=== PATIENT | male | born 1935 | race Caucasian/White ===

== ENCOUNTER 2024-05-02 11:11 | Outpatient (RCR) | payer OTHER, SELFPAY | END 2024-05-02 23:59 | disposition home or self-care (01) | LOC: RPT 11:11 | PROVIDERS: ATTENDING PHYSICIAN Orthopaedic Surgery Hand Surgery; FAMILY PHYSICIAN Internal Medicine | DX: M25.512 Pain in left shoulder (principal); Z73.6 Limitation of activities due to disability; M62.81 Muscle weakness (generalized); G89.29 Other chronic pain; W18.39XD Other fall on same level, subsequent encounter | CPT/HCPCS: 97010; 97110; 97162 ==

== ENCOUNTER → 2024-06-04 13:02 | Outpatient (REF) | payer OTHER, SELFPAY | LOC: HWRAD 13:02 | PROVIDERS: ATTENDING PHYSICIAN Internal Medicine | DX: R51.9 Headache, unspecified (principal) | CPT/HCPCS: 70450 ==

== ENCOUNTER → 2024-06-17 11:04 | Outpatient (REF) | payer OTHER, SELFPAY | LOC: HWRAD 11:04 | PROVIDERS: ATTENDING PHYSICIAN Internal Medicine | DX: R07.81 Pleurodynia (principal) | CPT/HCPCS: 71101 ==

== ENCOUNTER 2024-12-08 07:45 | Inpatient (IN) | payer OTHER, SELFPAY ==
[2024-12-03 09:49] VITALS: BP 116/79
[2024-12-03 10:23] VITALS: BP 99/66
[2024-12-03 10:39] VITALS: BMI 26.3
[2024-12-03 10:43] LABS: Hematocrit 37.3 % (39.0-52.0); Hemoglobin 12.6 g/dL (13.0-18.0); Mean Corp Hgb Conc. 33.8 g/dL (33.0-37.0); Mean Corpuscular Volume 88.4 fL (80.0-94.0); Nucleated Red Blood Cells % 0 % (-); Platelet Count 235 10^3/uL (130-400); Red Cell Dist. Width 15.3 % (11.5-14.5)
[2024-12-03 10:55] LABS: ALT (SGPT) 17 U/L (0-50); AST (SGOT) 19 U/L (17-59); Albumin 3.9 g/dl (3.5-5.0); Alkaline Phosphatase 56 U/L (38-126); Blood Urea Nitrogen 18 mg/dl (9-20); Calcium 9.4 mg/dl (8.4-10.2); Carbon Dioxide 25 mmol/L (22-30); Chloride 106 mmol/L (98-107); Estimated Creatinine Clearance 60 ml/min; Glucose 114 mg/dl (70-99); Lipase 65 U/L (23-300); Potassium 4.0 mmol/L (3.5-5.1); Sodium 136 mmol/L (135-145); Total Protein 6.2 g/dl (6.3-8.2); eGFR > 60.00
[2024-12-03] MEDS: NSS 1000 IV (12:04)
--- NOTE | 2024-12-03 12:36 | ED.GENMED ---
History of Present Illness
General
Chief Complaint: Abdominal Pain
Source: patient
Exam Limitations: none
Time Seen by Provider: 12/03/24 10:21
Nursing documentation reviewed up to this point in time: agreed with
History of Present Illness
History of Present Illness:
see MDM
Past History
Past History
ED Past Medical History: GERD, Hypercholesterolemia, Hypothyroidism and Other (Asp PNA, R rotator cuff problems)
ED Past Surgical History: Appendectomy
Social History
Tobacco: Former smoker
Alcohol: None
Drug: None
Personal:
Living: with family
Family History
Family History: Cancer (Colon cancer) and Other (Mother had Alzheimer's)
Review of Systems
Review of Systems
Allergies reviewed?: Yes
All Other Systems: Not applicable
Phy Exam
Physical Exam
Physical Exam:
GENERAL: Alert , in no apparent distress
EYE: pupils equal and reactive
NECK: Supple
ENT: o/p clr, mmm.
CARDIAC: Regular rate and rhythm .
LUNGS: Clear breath sounds bilaterally, no acute respiratory distress, no wheezes/rales/rhonchi
ABDOMEN: Soft,mild epigastric tendneress; no r/g, no cvat, normal bowel sounds
NEUROLOGICAL: Alert and oriented, no focal neuro deficits
SKIN: Warm and dry, skin intact.
MUSCULOSKELETAL: No edema, well perfused. neg calin's sign
PSYCH: Normal and appropriate interaction.
Course
Orders/Labs/Results
Orders:
Orders
12/03/24 Lunch
Regular
At Your Request: Full Participation
12/03/24 10:34
CMP [Comprehensive Metabolic Panel] Urgent
Complete Blood Count/With Diff Urgent
Lipase Urgent
Comment: ADD ON
12/03/24 10:37
Add On- LAB Urgent
Tests Added?: lipase
12/03/24 10:59
Electrocardiogram (*1) Urgent
Reason for Study: Abdominal Pain
EKG- Treatment ONCE
0.9% Sodium Chloride 1000 ml [Nss] 1,000 ml IV BOLUS
US Abdomen Complete/Upper Urgent
Comment:
Reason For Exam: upper abd pain, vomitnig
12/03/24 12:05
Troponin I Urgent
12/03/24 12:55
Ampicillin/Sulbactam 3 G [Unasyn] 3 gm 0.9% Sodium Chloride 100 ml [Nss] 100 ml IV NOW
12/03/24 14:25
Admit Patient As Directed
Co-Sign Provider:
Level of Care: Observation services
Assign to:: Medical/Surgical
Physician / Group: Isaak
Diagnosis: Biliary colic
Code Status As Directed
Resuscitation Status: Full Code
Acetaminophen [Tylenol] 650 mg PO Q4HPRN PRN
HYDROmorphone [Dilaudid] 0.5 mg IV Q3HPRN PRN
HYDROmorphone [Dilaudid] 1 mg IV Q3HPRN PRN
Ondansetron Injectable [Zofran] 4 mg IV Q6HPRN PRN
Activity As Directed
Activity Level: Out of Bed-Early Mobility
Anti-embolism (GABINO) Hose As Directed
Type: Thigh high
Intake/ Output As Directed
Frequency: Per unit guidelines
Vital Signs As Directed
Frequency: Per unit guidelines
PRN Pain Medication Management As Directed
May give lesser potent ordered pain med per pt: Yes
preference::
Protocol:: Medication orders for pain may be administered in a
manner that supports deferring to patient preference
when the pt is:
- Requesting an ordered lesser potent pain medication.
Least to most potent pain medications are defined
as: acetaminophen < NSAID < tramadol < opioids
(morphine, oxycodone, hydromorphone).
- Requesting a lesser dose of the same medication IF
ORDERED.
- Requesting a less intrusive route of administration
if both routes are prescribed by the provider (PO <
IV).
12/03/24 14:26
Pneumatic Compression Sleeves As Directed
Type: Knee high
DX Deep Vein Thrombosis Video Routine
12/03/24 14:29
Consult Cardiology [CARDIOLOGY CONSULT] Routine
Consulting Provider: Van Znuiga
Was physician already notified: Yes
Reason for consult: cards risk stratfication for lap norbert
12/03/24 14:30
Normosol (Mult Electrolytes) [Normosol-R/Plasmalyte-A] 1,000 ml IV 75 mls/hr
12/03/24 15:00
Pantoprazole [Protonix IV] 40 mg IV DAILY
12/03/24 18:00
Enoxaparin Sodium [Lovenox] 40 mg SC QPM
12/04/24 Breakfast
NPO
Allow oral meds: No
Allow clear liquids: No
Basic Metabolic Panel IN AM
Complete Blood Count/No Diff IN AM
LFT [Wdfcw-Snld-Ravkaww] IN AM
Levothyroxine [Synthroid] 100 mcg PO DAILY@0600
12/04/24 08:00
Finasteride [Proscar] 5 mg PO DAILY
Abnormal Lab Results
12/03/24
10:34
WBC 13.1 H 10^3/uL
(4.8-10.8)
RBC 4.22 L 10^6/uL
(4.70-6.10)
Hgb 12.6 L g/dL
(13.0-18.0)
Hct 37.3 L %
(39.0-52.0)
RDW 15.3 H %
(11.5-14.5)
Abs Immat Gran (auto) 0.1 H 10^3/uL
(0-0.05)
Absolute Neuts (auto) 11.6 H 10^3/uL
(1.4-6.5)
Absolute Lymphs (auto) 0.8 L 10^3/uL
(1.2-3.4)
Absolute Monos (auto) 0.7 H 10^3/uL
(0.1-0.6)
Neutrophils % 88.3 H %
(42.2-75.2)
Lymphocytes % 5.9 L %
(20.5-51.1)
Glucose 114 H mg/dl
(70-99)
Total Protein 6.2 L g/dl
(6.3-8.2)
12/03/24 10:34
12/03/24 10:34
Vital Signs
Initial and Last Documented VS:
Initial Vital Signs
Pulse Resp BP Pulse Ox
89 18 116/79 98
12/03/24 09:49 12/03/24 09:49 12/03/24 09:49 12/03/24 09:49
Last Documented Vital Signs
Temp Pulse Resp BP Pulse Ox
36.4 C 74 20 105/63 98
12/03/24 09:51 12/03/24 13:15 12/03/24 13:15 12/03/24 13:01 12/03/24 12:38
MDM/Problems Addressed
Differential Diagnosis Includes:
see MDM
MDM/Problems Addressed:
Note:
CHIEF COMPLAINT(S)
Abdominal pain, nausea, and vomiting.
HISTORY OF PRESENT ILLNESS
The patient is an 89-year-old male presenting with abdominal pain, nausea, and vomiting. The onset of symptoms was noted after sitting on a stool while providing care for his spouse. He experienced significant indigestion and attempted to relieve it
by belching without success. The patient subsequently developed abdominal pain, described initial severity as 7/10 and later decreased to 3-4/10. He also noted nausea and vomiting, which occurred thrice, with the last episode prior to 3 a.m.
Alongside these symptoms, he reported restless legs syndrome becoming symptomatic throughout his entire body. The patient self-administered acetaminophen at 3 a.m., which temporarily alleviated his abdominal pain. Attempts to hydrate with warm water
were successful, and he forced a difficult bowel movement that provided no relief. He takes medications intermittently for GERD, including a proton pump inhibitor. The patient has no prior history of stomach ulcers or known gallbladder disease. He
reports low blood pressure historically but is not on medications like midodrine.
PAST MEDICAL AND SURGICAL HISTORY
- History of low blood pressure
- Appendectomy performed approximately 20 years ago
- Previous bout of varicella-zoster virus infection (shingles)
CHRONIC MEDICAL CONDITIONS SIGNIFICANTLY AFFECTING CARE
- Gastroesophageal reflux disease (GERD)
- Restless legs syndrome
PHYSICAL EXAM
- Abdominal examination reveals no significant tenderness
Nursing notes reviewed and vital signs reviewed.
PLAN
- Order laboratory tests to evaluate liver, gall bladder, pancreas, and other potential sources of abdominal pain.
- Monitor patient�s symptoms and provide supportive care, keeping patient hydrated.
- Consider potential viral gastroenteritis as a differential to observe clinical progression.
DIFFERENTIAL DIAGNOSIS
The Differential Diagnosis includes, in no particular order and is not limited to:
1. Gastroesophageal reflux disease exacerbation
2. Gallbladder disease (cholecystitis or choledocholithiasis)
3. Peptic ulcer disease
4. Gastroenteritis (viral)
5. Pancreatitis
6. Gastritis
7. Small bowel obstruction
8. Intestinal ischemia
9. Hiatal hernia
10. Cardiovascular events (e.g., myocardial infarction presenting as abdominal pain)
room [address] is estephania ray pretty healthy 89 y/o M HLD, chronically low bp (90s/60s baseline)
upper abd pain last night, vomit x 3, still has mild pain;
afebrile, wbc 13, lfts,/lipase normal, mild epigastric tenderness; US shows cholelithiasis with distension and mild thickening and edema; no ductal dilation
I messaged Dr. Mulligan from general surgery
He did come see the patient and did recommend that the patient stay, will start with IV antibiotics and probably try a p.o. challenge because the patient did not seem overly tender and may just be biliary colic. He will defer decision for surgery
till tomorrow
*Pulse Oximetry
SaO2: 98
Oxygen Mode of Delivery: Room air
Patient hypoxic: no (98)
*Critical Care Note
Total Time (30-74mins, 75-104mins- exclusive of procedures): Not Applicable
ED Attending Note
-
Portions of this chart may have been created with voice recognition software.� Occasional wrong word or��sound alike� substitutions may have occurred due to the inherent limitations of voice recognition software.
Discharge Plan
Departure
Patient Disposition: Admit
Date of Disposition: 12/03/24
Time of Disposition: 14:18
Admit to: Med/Surg
Admit to doctor: isaak
Presentation/result/management discussed w/ accepting MD/DO: isaak
Condition: Fair
Covid-19: Not Applicable
Discharge Problem:
Cholelithiasis
Interventions
Interventions:
*Risk Screen - Suicide Last Done: 12/03/24 09:48
*General Assessment Last Done: 12/03/24 09:48
*Neglect/Abuse Screening Last Done: 12/03/24 09:48
*ED- Fall Risk Assessment Last Done: 12/03/24 10:39
*ED COVID-19 Vaccine History Last Done: 12/03/24 10:39
ND-Adchro-Pdsttzefju Assessment Last Done: 12/03/24 10:38
[2024-12-03 12:51] LABS: Troponin I < 0.012 ng/ml
[2024-12-03 13:01] VITALS: BP 105/63
[2024-12-03] MEDS: UNASYN IV (13:27)
--- NOTE | 2024-12-03 14:30 | CON.GS ---
Consultation
-
Date/Time Consultation Performed: 12/03/24
Requesting Provider: Pippa
Performing Provider: Isaak
Reason for Consultation: Biliary colic
Medical History
-
Chief Complaint: Abd pain
History of Present Illness:
89M with acute onset RUQ abd pain that began around midnight last night, a/w belching that progressed to n/v. Vomiting did not provide relief. Denies changes to stool/urine, denies radiation of pain. Ate fried chicken tenders for dinner last night.
Presently reports feeling well, denies pain.
Past Medical History
Past Medical History: Other (GERD, Hypercholesterolemia, Hypothyroidism and Other (Asp PNA, R rotator cuff problems))
Past Surgical History: Other (Appendectomy)
Social History
Tobacco: Former Smoker
Alcohol: None
Drug: None
Personal:
Living: With Family
Family History
Family History: Reviewed & Noncontributory
Allergies / Home Medications
Allergy/AdvReac Type Severity Reaction Status Date / Time
No Known Allergies Allergy Verified 12/03/24 09:45
�Medication �Instructions �Recorded �Confirmed �Type
acetaminophen 325 mg tablet 650 mg PO Q6HPRN PRN mild pain 12/03/24 12/03/24 History
(Tylenol)
calcium carbonate (Tums) 200 mg PO BIDPRN PRN gerd 12/03/24 12/03/24 History
cholecalciferol (vitamin D3) 25 25 mcg PO DAILY 12/03/24 12/03/24 History
mcg (1,000 unit) tablet (Vitamin
D3)
ferrous sulfate 325 mg (65 mg 325 mg PO DAILY 12/03/24 12/03/24 History
iron) tablet
finasteride 5 mg tablet 5 mg PO DAILY 12/03/24 12/03/24 History
levothyroxine 100 mcg tablet 100 mcg PO DAILY 12/03/24 12/03/24 History
(Synthroid)
pantoprazole 40 mg tablet,delayed 40 mg PO DAILYPRN PRN gerd 12/03/24 12/03/24 History
release (Protonix)
therapeutic multivitamin 1 tab PO DAILY 12/03/24 12/03/24 History
vitamin E 268 mg (400 unit) capsule 268 mg PO DAILY 12/03/24 12/03/24 History
Review of Systems
-
A 10 point review of systems was completed, and was negative except as per HPI.
Physical Exam
Vital Signs
Temp Pulse Resp BP Pulse Ox
97.6 F 74 20 105/63 98
12/03/24 09:51 12/03/24 13:15 12/03/24 13:15 12/03/24 13:01 12/03/24 12:38
12/02/24 12/03/24 12/04/24
06:59 06:59 06:59
Actual Weight 83.2 kg
Body Mass Index (BMI) 26.3
Lab Results
12/03/24 10:34
12/03/24 10:34
WBC 13.1 10^3/uL (4.8-10.8) H 12/03/24 10:34
Hgb 12.6 g/dL (13.0-18.0) L 12/03/24 10:34
Hct 37.3 % (39.0-52.0) L 12/03/24 10:34
Plt Count 235 10^3/uL (130-400) 12/03/24 10:34
Abs Immat Gran (auto) 0.1 10^3/uL (0-0.05) H 12/03/24 10:34
Neutrophils % 88.3 % (42.2-75.2) H 12/03/24 10:34
Physical Exam
General: Well Developed, Well Nourished and No Apparent Distress
HEENT: Normocephalic and Anicteric
GI: Soft, Non Tender and Non Distended
Skin: Warm and Dry
Neuro: AO x 3
Psych: Calm
Data Reviewed
-
Ultrasound: Image Personally Visualized and interpreted, Report Reviewed by me, Discussed with Physician, Discussed with Patient and Discussed with Family
Labs: Labs Reviewed by me, Discussed with Physician, Discussed with Patient and Discussed with Family
Assessment / Plan
-
89M with biliary colic vs subacute calculous cholecystitis
AFVSS, BP chronically low
no ttp to RUQ nor epigastrium on exam
WBC 13.1K, LFTs WNL
US with stones, 6.5mm GBWT, trace PCF, CBD WNL, negative sono thomas's
Plan:
Admit for obs
PO challenge, NPO @ MN to preserve option of surgery tomorrow
If he eats without issues and WBC improves tomorrow, option of deferring surgery is reasonable
If PO doesn't go well or WBC increases tomorrow would recommend proceeding to OR for CCY
Cards consult for risk stratification
Defer abx for now unless fever develops
Trend labs
DVT ppx
PPI IV
Home thyroid meds and finasteride to continue
Ambulate
D/w patient and family, all in agreement
--- NOTE | 2024-12-03 14:35 | CON.CAR ---
Addendum entered and electronically signed by Van Zuniga DO 12/03/24 21:23:
I saw and examined the patient.
[employer] Author's note was reviewed and I agree with note.
Plan:
HPI: Patient came to the ER today with ongoing nausea and abdominal pain and is being admitted with possible biliary colic versus subacute calculous cholecystitis and cardiology is consulted for possible surgical intervention and the need for
preoperative cardiovascular risk stratification. Patient said symptoms primarily started yesterday and then were progressively worse leading to his arrival in the ER. In the ER there was upper abdominal pain and midepigastric tenderness prompting
abdominal ultrasound that showed cholelithiasis with distention and mild thickening and edema, but no ductal dilatation. The patient was seen by general surgery who suspects biliary colic versus subacute calculous cholecystitis and is considering
cholecystectomy. Patient reports that he is independent with all the activity in his two-story home, he is up and down the stairs on a daily basis without any chest pain or shortness of breath. He quit smoking over 40 years ago. He was seen by
Dr. Redman as an ER consult back in 2010 for chest pain and at that time he completed an exercise nuclear stress test completing 6-1/2 minutes of Prasanna protocol and on nuclear imaging the EF was preserved at 68% with small fixed inferior apical
defect and overall he is felt to be low risk.
Prior negative stress with no hx of cardiac disease
He is able to perform greater than 4 METs of activity without symptoms.
Check echo and if there are no significant findings then he is acceptable cardiac risk for surgery.. He is mild to moderate risk based on age and comordities.
Original Note:
Consultation
Consultation Request
Date/Time Consultation Requested: 12/03/2024
Date/Time Consultation Performed: 12/03/2024
Requesting Provider: Hospitalist
Performing Provider: Dr. Zuniga
Reason for Consultation: Preoperative cardiovascular risk stratification
Medical History
-
History of Present Illness:
Patient came to the ER today with ongoing nausea and abdominal pain and is being admitted with possible biliary colic versus subacute calculous cholecystitis and cardiology is consulted for possible surgical intervention and the need for
preoperative cardiovascular risk stratification. Patient said symptoms primarily started yesterday and then were progressively worse leading to his arrival in the ER. In the ER there was upper abdominal pain and midepigastric tenderness prompting
abdominal ultrasound that showed cholelithiasis with distention and mild thickening and edema, but no ductal dilatation. The patient was seen by general surgery who suspects biliary colic versus subacute calculous cholecystitis and is considering
cholecystectomy. Patient reports that he is independent with all the activity in his two-story home, he is up and down the stairs on a daily basis without any chest pain or shortness of breath. He quit smoking over 40 years ago. He was seen by
Dr. Redman as an ER consult back in 2010 for chest pain and at that time he completed an exercise nuclear stress test completing 6-1/2 minutes of Prasanna protocol and on nuclear imaging the EF was preserved at 68% with small fixed inferior apical
defect and overall he is felt to be low risk.
PMH:
Hypothyroidism
Past Medical History
Past Medical History: Other (In HPI)
Past Surgical History: Appendectomy
Social History
Tobacco: Former Smoker
Alcohol: Occasional
Drug: None
Personal:
Living: With Family
Family History
Family History: Reviewed & Not Pertinent
Allergies / Home Medications
Allergy/AdvReac Type Severity Reaction Status Date / Time
No Known Allergies Allergy Verified 12/03/24 09:45
�Medication �Instructions �Recorded �Confirmed �Type
acetaminophen 325 mg tablet 650 mg PO Q6HPRN PRN mild pain 12/03/24 12/03/24 History
(Tylenol)
calcium carbonate (Tums) 200 mg PO BIDPRN PRN gerd 12/03/24 12/03/24 History
cholecalciferol (vitamin D3) 25 25 mcg PO DAILY 12/03/24 12/03/24 History
mcg (1,000 unit) tablet (Vitamin
D3)
ferrous sulfate 325 mg (65 mg 325 mg PO DAILY 12/03/24 12/03/24 History
iron) tablet
finasteride 5 mg tablet 5 mg PO DAILY 12/03/24 12/03/24 History
levothyroxine 100 mcg tablet 100 mcg PO DAILY 12/03/24 12/03/24 History
(Synthroid)
pantoprazole 40 mg tablet,delayed 40 mg PO DAILYPRN PRN gerd 12/03/24 12/03/24 History
release (Protonix)
therapeutic multivitamin 1 tab PO DAILY 12/03/24 12/03/24 History
vitamin E 268 mg (400 unit) capsule 268 mg PO DAILY 12/03/24 12/03/24 History
Review of Systems
-
History Source: Patient
All other systems: Negative unless noted
Physical Exam
Vital Signs
Temp Pulse Resp BP Pulse Ox
97.6 F 74 20 105/63 98
12/03/24 09:51 12/03/24 13:15 12/03/24 13:15 12/03/24 13:01 12/03/24 12:38
GEN: NAD. AAOx3
HEENT: EOMI, MMM
LUNGS: RA. CTA, no wheeze
CV: SR on tele. Reg, S1/S2, no murmur
ABD: ND
EXT: No edema B/L LE
NEURO: Gross non-focal
SKIN: Seborrheic keratoses over forehead, otherwise warm, dry and pink. No rash
Lab Results
12/03/24 10:34
12/03/24 10:34
Troponin I < 0.012 ng/ml 12/03/24 12:05
Impression / Plan
-
PCP Dr. Reveles
Cardiology: Last saw Dr. Redman 2010 as an ER consult
Impression:
Presented to the ER with abdominal pain and nausea 12/03/2024
Biliary colic versus subacute calculous cholecystitis
Hypothyroidism
Plan:
-Patient came to the ER today with ongoing nausea and abdominal pain and is being admitted with possible biliary colic versus subacute calculous cholecystitis and cardiology is consulted for possible surgical intervention and the need for
preoperative cardiovascular risk stratification. Patient said symptoms primarily started yesterday and then were progressively worse leading to his arrival in the ER. In the ER there was upper abdominal pain and midepigastric tenderness prompting
abdominal ultrasound that showed cholelithiasis with distention and mild thickening and edema, but no ductal dilatation. The patient was seen by general surgery who suspects biliary colic versus subacute calculous cholecystitis and is considering
cholecystectomy. Patient reports that he is independent with all the activity in his two-story home, he is up and down the stairs on a daily basis without any chest pain or shortness of breath. He quit smoking over 40 years ago. He was seen by
Dr. Redman as an ER consult back in 2010 for chest pain and at that time he completed an exercise nuclear stress test completing 6-1/2 minutes of Prasanna protocol and on nuclear imaging the EF was preserved at 68% with small fixed inferior apical
defect and overall he is felt to be low risk.
-ECG reviewed by me is SR without acute ST changes. Telemetry looks like SR as well
-Check echo, order placed by me
-Patient is not having any chest pain with activity, he is up and down the stairs in his home on a daily basis without any exertional symptoms. Pending echo patient can proceed with surgery as planned and would recommend perioperative telemetry
monitoring, avoid hypotension and keep Hgb greater than 8.
[2024-12-03 15:00] VITALS: BP 103/75
[2024-12-03] MEDS: PROTONIX IV 40 MG IV (16:09)
[2024-12-03] MEDS: NORMOSOL-R/PLASMALYTE-A 1000 IV (16:10)
--- NOTE | 2024-12-03 16:32 | CM ---
Initial assessment completed in ED at bedside
Pharmacy verified: [facility] @ [address] [facility]
WELDON form explained; form signed @ 1630
Lives w/ ; multilevel home; 1 step to enter; 12-13 steps to 2nd floor bedroom and bed; railings on stairs; half bath on 1st floor; full bath 2nd floor w/ walk-in shower (seat and grab bar)
PLOF: reported he is independent with ambulation, stairs, and ADLs; drives; they have a cleaning service; he does the cooking; no device with ambulation; 3 adult children live nearby and supportive
No SNF or Home Health utilization history
Family will provide transport home
Discharge Plan to be determined; pending decision for surgery tomorrow; CM will monitor for discharge needs and coordinate when identified
[2024-12-03 17:41] VITALS: BP 101/65
[2024-12-03] MEDS: LOVENOX 40 MG SC (18:19)
--- NOTE | 2024-12-03 18:26 | PTCARENOTE ---
Rn compensation coordinator- Patient's admission questions completed via phone assessment.
[2024-12-03] MEDS: TYLENOL 650 MG PO (20:50)
[2024-12-03 23:25] VITALS: BP 108/71
[2024-12-04] VITALS (13 sets, daily range): BP systolic 91–105; BP diastolic 52–65
[2024-12-04] MEDS: NORMOSOL-R/PLASMALYTE-A 1000 IV ×2 (06:09→20:30)
[2024-12-04 06:25] LABS: Hematocrit 32.6 % (39.0-52.0); Hemoglobin 10.9 g/dL (13.0-18.0); Mean Corp Hgb Conc. 33.4 g/dL (33.0-37.0); Mean Corpuscular Volume 90.3 fL (80.0-94.0); Platelet Count 196 10^3/uL (130-400); Red Cell Dist. Width 15.4 % (11.5-14.5)
[2024-12-04 06:51] LABS: ALT (SGPT) 12 U/L (0-50); AST (SGOT) 16 U/L (17-59); Albumin 3.0 g/dl (3.5-5.0); Alkaline Phosphatase 44 U/L (38-126); Blood Urea Nitrogen 15 mg/dl (9-20); Calcium 8.3 mg/dl (8.4-10.2); Carbon Dioxide 26 mmol/L (22-30); Chloride 110 mmol/L (98-107); Estimated Creatinine Clearance 54 ml/min; Glucose 93 mg/dl (70-99); Potassium 4.1 mmol/L (3.5-5.1); Sodium 140 mmol/L (135-145); Total Protein 5.0 g/dl (6.3-8.2); eGFR > 60.00
[2024-12-04] MEDS: PROSCAR PO (08:48)
[2024-12-04] MEDS: PROTONIX IV 40 MG IV (09:57)
--- NOTE | 2024-12-04 13:49 | W.PN.CARDCBS ---
Addendum entered and electronically signed by Konstantin Robbins MD 12/04/24 15:08:
I saw and examined the patient.
The Cath Lab Manager's note was reviewed and I agree with the note.
Comment:
GEN: No distress, awake, Ox3
HEENT: supple, anicteric, mmm
LUNGS: CTA, no wheezes/rales
CV: Reg, S1/S2, 1/6 syst LSB, nogallop
ABD: soft, BS+, NT/ND
EXT: No edema
NEURO: Gross non-focal
SKIN: No rash
PLan:
Echo with preserved ejection fraction and no significant valve disease. He is stable to proceed with gallbladder surgery.
EKG with normal sinus rhythm.
Original Note:
Today's Communication / Plan
-
Echo showed preserved EF without WMA or significant valve disease
Impression / Plan
-
PCP Dr. Reveles
Cardiology: Last saw Dr. Redman 2010 as an ER consult
Impression:
Presented to the ER with abdominal pain and nausea 12/03/2024
Biliary colic versus subacute calculous cholecystitis
Hypothyroidism
Echo 12/04/2024: EF 55 to 60%, no WMA, no significant valve disease
Plan:
-Cardiology asked to see the patient for preoperative cardiovascular risk stratification, unclear if surgery is planned
-Echo completed, report reviewed and summarized above by me on 12/04/2024
-No complaints of chest pain and patient was completing 4 METS of activity without chest pain or MAYNARD prior to admission.
-Suspect patient is mild to moderate risk based on his age and comorbidities, but overall he is an acceptable cardiac risk for surgery if that is the plan.
-If surgery is planned recommend telemetry monitoring perioperatively
HPI: Patient came to the ER today with ongoing nausea and abdominal pain and is being admitted with possible biliary colic versus subacute calculous cholecystitis and cardiology is consulted for possible surgical intervention and the need for
preoperative cardiovascular risk stratification. Patient said symptoms primarily started yesterday and then were progressively worse leading to his arrival in the ER. In the ER there was upper abdominal pain and midepigastric tenderness prompting
abdominal ultrasound that showed cholelithiasis with distention and mild thickening and edema, but no ductal dilatation. The patient was seen by general surgery who suspects biliary colic versus subacute calculous cholecystitis and is considering
cholecystectomy. Patient reports that he is independent with all the activity in his two-story home, he is up and down the stairs on a daily basis without any chest pain or shortness of breath. He quit smoking over 40 years ago. He was seen by
Dr. Redman as an ER consult back in 2010 for chest pain and at that time he completed an exercise nuclear stress test completing 6-1/2 minutes of Prasanna protocol and on nuclear imaging the EF was preserved at 68% with small fixed inferior apical
defect and overall he is felt to be low risk.
Progress Note - Transportation Broker
Subjective
Date of Service: December 04, 2024
He feels better compared to admission, no chest pain
Objective
Labs:
12/04/24 05:55
12/04/24 05:55
Labs
Hgb 10.9 g/dL (13.0-18.0) L 12/04/24 05:55
Hct 32.6 % (39.0-52.0) L 12/04/24 05:55
Plt Count 196 10^3/uL (130-400) 12/04/24 05:55
Sodium 140 mmol/L (135-145) 12/04/24 05:55
Potassium 4.1 mmol/L (3.5-5.1) 12/04/24 05:55
BUN 15 mg/dl (9-20) 12/04/24 05:55
Creatinine 1.0 mg/dL (0.7-1.3) 12/04/24 05:55
Glucose 93 mg/dl (70-99) 12/04/24 05:55
Troponins
12/03/24
12:05
Troponin I < 0.012
Vital Signs and I&O:
Vital Signs
Temp Pulse Resp BP Pulse Ox
98.4 F 71 16 91/52 99
12/04/24 07:25 12/04/24 07:29 12/04/24 07:25 12/04/24 07:29 12/04/24 07:25
Vital Signs
Temp Pulse Resp BP Pulse Ox
98.4 F 71 16 91/52 99
12/04/24 07:25 12/04/24 07:29 12/04/24 07:25 12/04/24 07:29 12/04/24 07:25
Intake & Output
12/02/24 12/03/24 12/04/24 12/05/24
06:59 06:59 06:59 06:59
Intake Total 240 / 240
Balance 240 / 240
Physical Exam
Physical Exam
GEN: NAD. AAOx3
LUNGS: RA. No wheeze
CV: Reg
--- NOTE | 2024-12-04 16:36 | W.PN.GS2 ---
Today's Communication / Plan
-
`
Assessment / Plan
-
Assessment/plan: 89-year-old male admitted with acute biliary colic versus acute calculus cholecystitis
Reviewed with patient and his son at bedside indications for consideration of cholecystectomy. Patient advises that he is in agreement to proceed with cholecystectomy at this hospitalization. He has been cleared from the cardiology service.
Laparoscopic cholecystectomy with cholangiogram was reviewed in detail including operative technique utilizing diagrams and alternative management options. The potential benefits and risks of the procedure were reviewed in detail, including but not
limited to infectious or wound healing complications, bleeding, bile leak, injury to biliary tree, iatrogenic injury to surrounding viscera and post cholecystectomy syndrome. Reviewed the typical postoperative recovery.
Any of the patient's concerns or questions were fully addressed and informed consent was obtained.
Subjective Data
-
Date of Service: December 04, 2024
Patient seen and examined earlier this a.m. as well as currently in the preoperative waiting area.
Presenting abdominal pain has resolved.
No nausea or vomiting.
Objective Data
-
Intake and Output
12/03/24 12/04/24 12/05/24
06:59 06:59 06:59
Intake Total 240 / 240
Balance 240 / 240
Intake:
Oral fluids 240 / 240
Other:
Number of approximated MODERATE 3
amounts of urine
Vital Signs
Temp Pulse Resp BP Pulse Ox
98.3 F 70 16 93/56 98
12/04/24 14:55 12/04/24 14:55 12/04/24 14:55 12/04/24 14:55 12/04/24 14:55
Lab Results
12/04/24 05:55
12/04/24 05:55
Calcium 8.3 mg/dl (8.4-10.2) L 12/04/24 05:55
Total Bilirubin 0.4 mg/dl (0.2-1.3) 12/04/24 05:55
Direct Bilirubin 0.3 mg/dl (0.0-0.4) 12/04/24 05:55
AST 16 U/L (17-59) L 12/04/24 05:55
ALT 12 U/L (0-50) 12/04/24 05:55
Alkaline Phosphatase 44 U/L (38-126) 12/04/24 05:55
Total Protein 5.0 g/dl (6.3-8.2) L 12/04/24 05:55
Albumin 3.0 g/dl (3.5-5.0) L 12/04/24 05:55
Physical Exam
-
NAD AAO x 3
ABD: Soft, nondistended, mild tenderness palpation right upper quadrant. No rebound rigidity or guarding
--- NOTE | 2024-12-04 16:38 | W.SUR.PREOP ---
Pre-Operative Surgical Note
-
I have examined this patient prior to the performance of the scheduled procedure.
The patient's condition is unchanged from the time of the current History and
Physical and the patient is able to undergo the scheduled procedure.
[2024-12-04] MEDS: LOVENOX SC (18:15)
--- NOTE | 2024-12-04 19:04 | W.IMMPOSTOP ---
Addendum entered and electronically signed by Sebastian Liu MD 12/05/24 16:29:
#[id number]
Original Note:
Surgical Immed Post Op Note
-
Primary Surgeon: Sebastian Liu MD
Assisting Surgeon: Des CARDOOS
Pre-op Diagnosis: Acute biliary colic/acute calculus cholecystitis
Post-op Diagnosis: Acute biliary colic/acute calculus cholecystitis; suspected choledocholithiasis
Procedure Performed: Laparoscopic cholecystectomy with intraoperative cholangiogram
Anesthesia Type: GETA +0.25% Marcaine
Specimen / Cultures: Gallbladder
Estimated Blood Loss: 50 mL
Complications: None immediate
Operative Findings: Distended gallbladder with edema throughout wall/serosa. Intraoperative cholangiogram with shelf/cut off at distal common bile duct and delayed/slight emptying into the duodenum. Fed cholangiocatheter into the distal common
bile duct and met resistance at the level of the ampulla with reflux of catheter into pancreatic duct and then into the duodenum. Cholecystectomy completed. Cystic duct controlled with hemoclips. Friable liver capsule adherent to gallbladder to
account for increased intraoperative blood loss. Controlled with monopolar cautery. Surgiflo placed on hepatic bed. 1 g TXA administered intraoperatively.
Plan: Discussed with GI service.
Updated patient's family postoperatively regarding suspected choledocholithiasis and anticipated next episode of endoscopic ultrasound + - ERCP
Clear liquids then n.p.o. after midnight
Check labs in a.m.
[2024-12-04] MEDS: DILAUDID 0.25 MG IV ×2 (19:08→19:15)
[2024-12-04] MEDS: MORPHINE SULFATE 1 MG IV (20:08)
[2024-12-04] MEDS: DILAUDID 0.5 MG IV (20:45)
[2024-12-05] VITALS (7 sets, daily range): BP systolic 94–103; BP diastolic 55–66
[2024-12-05] MEDS: NORMOSOL-R/PLASMALYTE-A 1000 IV ×3 (01:56→23:10)
[2024-12-05] MEDS: DILAUDID 0.25 MG IV ×2 (02:04→05:20)
[2024-12-05] MEDS: SYNTHROID PO ×2 (05:21→05:30)
[2024-12-05 05:48] LABS: Hematocrit 35.4 % (39.0-52.0); Hemoglobin 11.7 g/dL (13.0-18.0); Mean Corp Hgb Conc. 33.1 g/dL (33.0-37.0); Mean Corpuscular Volume 91.0 fL (80.0-94.0); Platelet Count 172 10^3/uL (130-400); Red Cell Dist. Width 15.5 % (11.5-14.5)
[2024-12-05 06:18] LABS: ALT (SGPT) 260 U/L (0-50); AST (SGOT) 352 U/L (17-59); Albumin 3.1 g/dl (3.5-5.0); Alkaline Phosphatase 97 U/L (38-126); Blood Urea Nitrogen 14 mg/dl (9-20); Calcium 8.2 mg/dl (8.4-10.2); Carbon Dioxide 27 mmol/L (22-30); Chloride 106 mmol/L (98-107); Estimated Creatinine Clearance 67 ml/min; Glucose 106 mg/dl (70-99); Potassium 4.5 mmol/L (3.5-5.1); Sodium 137 mmol/L (135-145); Total Protein 5.4 g/dl (6.3-8.2); eGFR > 60.00
--- NOTE | 2024-12-05 08:24 | CON.GI ---
Addendum entered and electronically signed by Jayant Stroud MD 12/05/24 10:37:
I saw and examined the patient.
The ASSOCIATE ACCOUNT MANAGER or PA's note was reviewed and I agree with the note.
Comment: 89yo male admitted with abd pain, GS, GBWT, leukocytosis and went to OR yesterday for lap norbert. IOC showed shelf sign and delayed emptying with resistance to passage of cholangiocath. GI asked to evaluate for CBD obstruction. TBil up to
3.8 today and AST/ALT 300/200 range. Still report RUQ pain
REC:
Plan EUS to eval for CBD stone or obstructing lesion. If positive for stone, ERCP
Cont NPO, abx
Lipase was added this am and normal
Original Note:
Consultation
-
Date/Time Consultation Requested: 12/04/24 1850
Date/Time Consultation Performed: 12/05/24 08
Requesting Provider: Sebastian Liu MD
Performing Provider: MARLO Spicer, Jayant Stroud MD
Reason for Consultation: abnormal cholangiogram
Medical History
Chief Complaint / HPI
Chief Complaint: abdominal pain
History of Present Illness:
Pt is a 89yo presents GERD, hypercholesterolemia, hypothyroidism, GERD, HTN, BPH, prior appe with onset of abdominal pain. On admission pt completed US abdomen with cholelithiasis and GB distention, wall thickening and edema. He was noted with WBC
13,100 that normalized, hbg 12.6, initial normal LFT's and lipase then rise on 12/04 to sergio 3.8, AST 352, ALT 260, alk phos 97. Pt went to OR for lap norbert with intraoperative cholangiogram with shelf/cut off at distal common bile duct and
delayed/slight emptying into the duodenum. Asked to see for EUS/ERCP with abnormal cholangiogram. In review with patient he denies and prior GI symptoms but had attack of pain prior to admission. He states he dose continued to have pain today
11/23 with some distention. He denies issue with odynophagia, dysphagia, GERD, nausea, vomiting, diarrhea, constipation, or rectal bleeding. No anticoagulation except lovenox that is on hold. No NSAID use. Distant hx EGD in past recalls as normal.
Past Medical History
Past Medical History: GERD, HTN, Hypercholesterolemia, Hypothyroidism and Other (aspiration PNA, rotator cuff problems, BPH)
Past Surgical History: Appendectomy and Other (mohs surgery )
Social History
Tobacco: Non-Smoker
Alcohol: None
Drug: None
Personal:
Living: With Family
Employment: Retired
Family History
Family History: Other (father with colon CA )
Allergies / Home Medications
Allergy/AdvReac Type Severity Reaction Status Date / Time
No Known Allergies Allergy Verified 12/03/24 09:45
�Medication �Instructions �Recorded
acetaminophen 325 mg tablet 650 mg PO Q6HPRN PRN mild pain 12/03/24
(Tylenol)
calcium carbonate (Tums) 200 mg PO BIDPRN PRN gerd 12/03/24
cholecalciferol (vitamin D3) 25 25 mcg PO DAILY 12/03/24
mcg (1,000 unit) tablet (Vitamin
D3)
ferrous sulfate 325 mg (65 mg 325 mg PO DAILY 12/03/24
iron) tablet
finasteride 5 mg tablet 5 mg PO DAILY 12/03/24
levothyroxine 100 mcg tablet 100 mcg PO DAILY 12/03/24
(Synthroid)
pantoprazole 40 mg tablet,delayed 40 mg PO DAILYPRN PRN gerd 12/03/24
release (Protonix)
therapeutic multivitamin 1 tab PO DAILY 12/03/24
vitamin E 268 mg (400 unit) capsule 268 mg PO DAILY 12/03/24
Review of Systems
-
History Source: Patient and Family
Constitutional: Reports No Symptoms
EENT: Reports No Symptoms
Respiratory: Reports No Symptoms
Abdomen/GI: Reports Abdominal Pain
: Reports No Symptoms
Musculoskeletal: Reports No Symptoms
Skin: Reports No Symptoms
Neurological: Reports Weakness
Endocrine: Reports No Symptoms
Hematologic/Lymphatic: Reports No Symptoms
Vital Signs
Temp Pulse Resp BP Pulse Ox
98.1 F 67 18 103/62 96
12/05/24 03:14 12/05/24 03:14 12/05/24 03:14 12/05/24 03:14 12/05/24 03:14
Physical Exam
Exam
General: Well Developed, Well Nourished and Other (some distress with pain )
HEENT: Normocephalic and Anicteric
Respiratory: Clear
Cardiac: Regular Rhythm
GI: Soft, Tender and Distended
Musculoskeletal: No Clubbing and No Cyanosis
Skin: Warm and Dry
Neuro: Awake, Alert and AO x 3
Psych: Calm
Results
WBC 9.2 10^3/uL (4.8-10.8) 12/05/24 05:01
Hgb 11.7 g/dL (13.0-18.0) L 12/05/24 05:01
Hct 35.4 % (39.0-52.0) L 12/05/24 05:01
MCV 91.0 fL (80.0-94.0) 12/05/24 05:01
Plt Count 172 10^3/uL (130-400) 12/05/24 05:01
Absolute Neuts (auto) 11.6 10^3/uL (1.4-6.5) H 12/03/24 10:34
Sodium 137 mmol/L (135-145) 12/05/24 05:01
Potassium 4.5 mmol/L (3.5-5.1) 12/05/24 05:01
Chloride 106 mmol/L (98-107) 12/05/24 05:01
Carbon Dioxide 27 mmol/L (22-30) 12/05/24 05:01
BUN 14 mg/dl (9-20) 12/05/24 05:01
Creatinine 0.8 mg/dL (0.7-1.3) 12/05/24 05:01
Calcium 8.2 mg/dl (8.4-10.2) L 12/05/24 05:01
Total Bilirubin 3.8 mg/dl (0.2-1.3) H D 12/05/24 05:01
AST 352 U/L (17-59) H 12/05/24 05:01
ALT 260 U/L (0-50) H 12/05/24 05:01
Alkaline Phosphatase 97 U/L (38-126) 12/05/24 05:01
Lipase 65 U/L (23-300) 12/03/24 10:34
Diagnostic Image Results:
12/03/24 US Abdomen Complete/Upper
Cholelithiasis with 2 small gallstones identified. The gallbladder is distended with mild gallbladder wall thickening and suggestion of edema within or adjacent to the gallbladder wall. However, the patient has a negative sonographic Unedrwood's sign.
No evidence for biliary ductal dilation.
Two simple cysts arising in the right kidney.
02/2023 CT Abd/pel W Iv And Oral Contr
IMPRESSION: Left inguinal hernia as described above. No evidence of incarceration or circulation. Stable.
Severe diverticulosis. Stable. No definitive evidence of acute diverticulitis.
Mild fecal material throughout the colon. Improved.
Right renal cyst. Stable.
Mild diffuse bladder wall thickening appearance likely partially due to limited distention. Cystitis and bladder outlet obstruction are not excluded. New.
Abdomen and pelvis: The liver, spleen, gallbladder and pancreas are unremarkable aside from a few too small to characterize hypodense hepatic lesions likely small cysts or hemangiomas. The adrenal glands and kidneys are unremarkable aside from
simple right renal cysts. The largest measures 6.2 cm. The abdominal aorta is normal caliber. There is moderate atherosclerotic vascular disease. No significant lymphadenopathy is noted. Bowel loops are normal caliber. The terminal ileum and
appendix are within normal limits. There is severe diverticulosis. There is mild fecal material throughout the colon.
Prior GI Procedures:
EGD: none in [facility] system
Colonoscopy: 2013 -[facility], diverticulosis, 5 mm polyp, HF, 6 mm polyp sigmoid colon
Assessment / Plan
-
Pt is a 89yo presents GERD, hypercholesterolemia, hypothyroidism, GERD, HTN, BPH, prior appe with onset of abdominal pain. On admission pt completed US abdomen with cholelithiasis and GB distention, wall thickening and edema. He was noted with WBC
13,100 that normalized, hbg 12.6, initial normal LFT's and lipase then rise on 12/04 to sergio 3.8, AST 352, ALT 260, alk phos 97. Pt went to OR for lap norbert with intraoperative cholangiogram with shelf/cut off at distal common bile duct and
delayed/slight emptying into the duodenum. Asked to see for EUS/ERCP with abnormal cholangiogram. In review with patient he denies and prior GI symptoms but had attack of pain prior to admission. He states he dose continued to have pain today
11/23 with some distention. He denies issue with odynophagia, dysphagia, GERD, nausea, vomiting, diarrhea, constipation, or rectal bleeding. No anticoagulation except lovenox that is on hold. No NSAID use. Distant hx EGD in past recalls as normal.
-abnormal cholangiogram with IOC with shelf/cut off distal CBD
-s/p lap norbert 12/04
-increased LFT's
other med problems:
GERD, hypercholesterolemia, hypothyroidism, GERD, HTN, BPH, prior appe
PLAN:
noted abnormal cholangiogram and now with continued pain concern for retained CBD stone vs less likely mass or lesion
plan for EUS/ERCP today
reviewed risk with pt and daughter--including and not limited to bleeding, infectious, perforation, reaction to medication, pancreatitis
some increased pain on exam will add lipase
cont abx
NPO
cont pain contol
all questions answered
-
-
Thank you for consultation and allowing me to participate in the patient's care. Please call the search engine optimization analyst GI physician during the after hours with any questions or concerns.
[2024-12-05] MEDS: PROTONIX IV IV (09:00)
[2024-12-05] MEDS: DILAUDID 0.5 MG IV ×2 (09:07→21:12)
[2024-12-05] MEDS: PROSCAR PO (09:18)
[2024-12-05 09:45] LABS: Lipase 49 U/L (23-300)
[2024-12-05 09:57] LABS: INR 1.15; PT 15.0 Sec (11.4-14.6)
--- NOTE | 2024-12-05 10:27 | W.PN.GS2 ---
Today's Communication / Plan
-
GI eval for ERCP
Assessment / Plan
-
Assessment/plan: 89-year-old male admitted with Acute biliary colic/acute calculus cholecystitis
POD #1 Lap norbert with IOC with suspected choledocholithiasis
LFT's rising today, bilirubin 3.8 from 04
No leukocytosis
H/H stable
Plan:
NPO for GI eval and tentative ERCP today
ADAT after procedure
Analgesics/antiemetics as needed
ABX pre procedure
VTE ppx with lovenox SQ
Subjective Data
-
Date of Service: December 05, 2024
Pt seen and examined at bedside with Dr Egan. Esvin n/v. Epigastric pain today, a bit worse than previous. Mild incisional tenderness.
Objective Data
-
Intake and Output
12/04/24 12/05/24 12/06/24
06:59 06:59 06:59
Intake Total 240 / 240 1132.5 / 1132.5
Output Total 200 / 200
Balance 240 / 240 932.5 / 932.5
Intake:
Oral fluids 240 / 240 120 / 120
IV fluids (Total) 1012.5 / 1012.5
Normosol 150 / 150
Output:
Urine, Voided 200 / 200
Other:
Number of approximated MODERATE 3
amounts of urine
Vital Signs
Temp Pulse Resp BP Pulse Ox
97.8 F 70 18 100/66 98
12/05/24 07:00 12/05/24 07:00 12/05/24 07:00 12/05/24 07:00 12/05/24 07:00
Lab Results
12/05/24 05:01
12/05/24 05:01
Calcium 8.2 mg/dl (8.4-10.2) L 12/05/24 05:01
Total Bilirubin 3.8 mg/dl (0.2-1.3) H D 12/05/24 05:01
Direct Bilirubin 0.3 mg/dl (0.0-0.4) 12/04/24 05:55
AST 352 U/L (17-59) H 12/05/24 05:01
ALT 260 U/L (0-50) H 12/05/24 05:01
Alkaline Phosphatase 97 U/L (38-126) 12/05/24 05:01
Total Protein 5.4 g/dl (6.3-8.2) L 12/05/24 05:01
Albumin 3.1 g/dl (3.5-5.0) L 12/05/24 05:01
Physical Exam
-
NAD AAO x 3
ABD: Soft, nondistended, mild tenderness to incisions, epigastric tenderness. No rebound rigidity or guarding
Incisions with intact glue, no erythema
[2024-12-05] MEDS: ZOSYN 50 IV ×2 (13:50→21:12)
[2024-12-05] MEDS: TYLENOL 650 MG PO (15:40)
--- NOTE | 2024-12-05 15:55 | CM ---
Chart reviewed. Care ongoing at this time
ERCP today
Laparoscopic cholecystectomy
CM will cont to follow for d/c needs
Plan: Anticipating home, will watch for any needs
[2024-12-06] MEDS: TYLENOL 650 MG PO ×2 (01:41→05:58)
[2024-12-06] MEDS: ZOSYN 50 IV ×4 (01:46→20:55)
[2024-12-06] MEDS: ZOFRAN 4 MG IV (04:39)
[2024-12-06] MEDS: SYNTHROID 100 MCG PO (05:19)
[2024-12-06] MEDS: SYNTHROID PO (05:19)
--- NOTE | 2024-12-06 06:30 | PTCARENOTE ---
Pt. had abdominal pain which he was given Dilaudid 0.5 mg IV, pt. noted 'it made me feel weird and dizzy. Next time pt. asked for pain he requested Tylenol which was given. Pt. slept during the night. At change of shift pt. was in room crying 'I
want a doctor right now' shaking both his hands, over and over. Pt. noted he did not want Tylenol or Dilaudid. Pt. noted he wanted Morphine. Explained to pt. that we have to get an order for Morphine first, will continue to monitor, passed info to
day R.N.
[2024-12-06 07:12] VITALS: BP 128/81
[2024-12-06] MEDS: PROSCAR 5 MG PO (07:39)
[2024-12-06] MEDS: DILAUDID 0.25 MG IV (07:39)
[2024-12-06] MEDS: PROTONIX IV 40 MG IV (07:39)
[2024-12-06 08:57] LABS: Hematocrit 34.3 % (39.0-52.0); Hemoglobin 11.5 g/dL (13.0-18.0); Mean Corp Hgb Conc. 33.5 g/dL (33.0-37.0); Mean Corpuscular Volume 91.2 fL (80.0-94.0); Platelet Count 170 10^3/uL (130-400); Red Cell Dist. Width 14.8 % (11.5-14.5)
[2024-12-06 09:35] LABS: ALT (SGPT) 210 U/L (0-50); AST (SGOT) 153 U/L (17-59); Albumin 3.0 g/dl (3.5-5.0); Alkaline Phosphatase 120 U/L (38-126); Blood Urea Nitrogen 12 mg/dl (9-20); Calcium 8.3 mg/dl (8.4-10.2); Carbon Dioxide 27 mmol/L (22-30); Chloride 104 mmol/L (98-107); Estimated Creatinine Clearance 60 ml/min; Glucose 92 mg/dl (70-99); Potassium 4.0 mmol/L (3.5-5.1); Sodium 136 mmol/L (135-145); Total Protein 5.3 g/dl (6.3-8.2); eGFR > 60.00
[2024-12-06] MEDS: NORMOSOL-R/PLASMALYTE-A IV (09:54)
[2024-12-06] MEDS: NORMOSOL-R/PLASMALYTE-A 1000 IV ×2 (11:51→20:55)
[2024-12-06] MEDS: TORADOL 15 MG IV ×3 (11:51→23:12)
[2024-12-06 12:43] LABS: Lipase > 4000 U/L (23-300)
--- NOTE | 2024-12-06 13:20 | W.PN.GI.CBS2 ---
Today's Communication / Plan
-
Increase IVF to 200cc/hr
Monitor clinical exam and recheck LFTs, lipase in am- Bili up to 6, possibly from edema from sphincterotomy. Stones were extracted
OK for clears for now
Pain control
Assessment / Plan
-
Pt is a 89yo presents GERD, hypercholesterolemia, hypothyroidism, GERD, HTN, BPH, prior appe with onset of abdominal pain. On admission pt completed US abdomen with cholelithiasis and GB distention, wall thickening and edema. He was noted with WBC
13,100 that normalized, hbg 12.6, initial normal LFT's and lipase then rise on 12/04 to sergio 3.8, AST 352, ALT 260, alk phos 97. Pt went to OR for lap norbert with intraoperative cholangiogram with shelf/cut off at distal common bile duct and
delayed/slight emptying into the duodenum. Asked to see for EUS/ERCP with abnormal cholangiogram. In review with patient he denies and prior GI symptoms but had attack of pain prior to admission. He states he dose continued to have pain today
11/23 with some distention. He denies issue with odynophagia, dysphagia, GERD, nausea, vomiting, diarrhea, constipation, or rectal bleeding. No anticoagulation except lovenox that is on hold. No NSAID use. Distant hx EGD in past recalls as normal.
Impression:
Choledocholithiasis s/p ERCP stone extraction 12/05.
Post ERCP pancreatitis
-abnormal cholangiogram with IOC with shelf/cut off distal CBD
-s/p lap norbert 12/04
-increased LFT's
other med problems:
GERD, hypercholesterolemia, hypothyroidism, GERD, HTN, BPH, prior appe
Subjective
Subjective
Date of Service: December 06, 2024
Has some mild abd pain, not severe.
Objective
Data Reviewed
Laboratory Data:
Laboratory Results
12/06/24 08:39
12/06/24 08:39
Laboratory Results
PT 15.0 Sec (11.4-14.6) H 12/05/24 09:23
INR 1.15 12/05/24 09:23
Total Bilirubin 6.9 mg/dl (0.2-1.3) H D 12/06/24 08:39
AST 153 U/L (17-59) H 12/06/24 08:39
ALT 210 U/L (0-50) H 12/06/24 08:39
Alkaline Phosphatase 120 U/L (38-126) 12/06/24 08:39
Lipase > 4000 U/L (23-300) H* 12/06/24 08:39
Vital Signs and I&O:
Vital Signs
Temp Pulse Resp BP Pulse Ox
98 F 76 16 128/81 95
12/06/24 07:12 12/06/24 07:12 12/06/24 07:12 12/06/24 07:12 12/06/24 07:12
I&O
12/05/24 12/06/24 12/07/24
06:59 06:59 06:59
Intake Total 1132.5 / 1132.5 1610 / 1610
Output Total 200 / 200 550 / 550
Balance 932.5 / 932.5 1060 / 1060
Physical Exam
Physical Exam
GI: Soft, Non Distended and Tender (mild epigastric tenderness)
[2024-12-06 15:06] VITALS: BP 110/72
--- NOTE | 2024-12-06 15:07 | W.PN.GS2 ---
Addendum entered and electronically signed by Kirill Mulligan MD 12/06/24 15:25:
I saw and examined the patient.
The Behavioral Sciences Department Chair's note was reviewed and I agree with the note.
Comment: nauseous, tender, c/o epigastric pain, suspect post-ERCP pancreatitis. Lipase elevation confirms. Tbili elevated likely lab lag vs rosio-ampullary swelling post procedure. Will trend. For now cld for comfort, IVF, serial ab exams.
Original Note:
Today's Communication / Plan
-
pain control
Assessment / Plan
-
Assessment/plan: 89-year-old male admitted with Acute biliary colic/acute calculus cholecystitis
POD #2 Lap norbert with IOC with suspected choledocholithiasis
PPD #1 ERCP with sphincterotomy and removal of stones
LFT's rising today, bilirubin 6.9 from 3.8
Lipase >4K
Suspect post ERCP pancreatitis/edema from sphincterotomy
No leukocytosis. H/H stable
Plan:
Clears as tolerated
Analgesics/antiemetics as needed. Will add scheduled Toradol in addition to prn narcotics
C/W IVF
ABX pre procedure, ok to D/C from surgical standpoint
Labs in AM
VTE ppx with lovenox SQ
Subjective Data
-
Date of Service: December 06, 2024
Pt seen and examined at bedside with Dr. Mulligan this AM. Family present and updated. Denies vomiting but with intermittent nausea. Pain to epigastrium increased overnight. Incisional pain is minimal.
Objective Data
-
Intake and Output
12/05/24 12/06/24 12/07/24
06:59 06:59 06:59
Intake Total 1132.5 / 1132.5 1610 / 1610
Output Total 200 / 200 550 / 550
Balance 932.5 / 932.5 1060 / 1060
Intake:
Oral fluids 120 / 120 360 / 360
IV fluids (Total) 1012.5 / 1012.5 1250 / 1250
LR 50 / 50
Normosol 150 / 150
Output:
Urine, Voided 200 / 200 550 / 550
Vital Signs
Temp Pulse Resp BP Pulse Ox
98 F 76 16 128/81 95
12/06/24 07:12 12/06/24 07:12 12/06/24 07:12 12/06/24 07:12 12/06/24 07:12
Lab Results
12/06/24 08:39
12/06/24 08:39
Calcium 8.3 mg/dl (8.4-10.2) L 12/06/24 08:39
Total Bilirubin 6.9 mg/dl (0.2-1.3) H D 12/06/24 08:39
Direct Bilirubin 0.3 mg/dl (0.0-0.4) 12/04/24 05:55
AST 153 U/L (17-59) H 12/06/24 08:39
ALT 210 U/L (0-50) H 12/06/24 08:39
Alkaline Phosphatase 120 U/L (38-126) 12/06/24 08:39
Total Protein 5.3 g/dl (6.3-8.2) L 12/06/24 08:39
Albumin 3.0 g/dl (3.5-5.0) L 12/06/24 08:39
Physical Exam
-
NAD
ABD soft, tender to epigastrium, minimal incisional tenderness, mild distention
Incisions well approximated, healing well
[2024-12-06] MEDS: LOVENOX 40 MG SC (16:41)
[2024-12-06 23:41] VITALS: BP 146/89
[2024-12-07] MEDS: ZOSYN 50 IV ×2 (02:12→07:42)
[2024-12-07] MEDS: NORMOSOL-R/PLASMALYTE-A 1000 IV ×3 (02:15→20:18)
[2024-12-07] MEDS: SYNTHROID 100 MCG PO (05:04)
[2024-12-07] MEDS: TORADOL 15 MG IV ×4 (05:49→23:31)
[2024-12-07 06:54] VITALS: BMI 26.3
[2024-12-07 07:35] VITALS: BP 109/66
[2024-12-07] MEDS: TYLENOL 650 MG PO ×2 (07:42→18:25)
[2024-12-07] MEDS: PROTONIX IV 40 MG IV (07:42)
[2024-12-07] MEDS: PROSCAR 5 MG PO (07:43)
[2024-12-07 07:46] LABS: Hematocrit 32.3 % (39.0-52.0); Hemoglobin 11.2 g/dL (13.0-18.0); Mean Corp Hgb Conc. 34.7 g/dL (33.0-37.0); Mean Corpuscular Volume 88.7 fL (80.0-94.0); Platelet Count 181 10^3/uL (130-400); Red Cell Dist. Width 14.3 % (11.5-14.5)
[2024-12-07 08:20] LABS: ALT (SGPT) 150 U/L (0-50); AST (SGOT) 76 U/L (17-59); Albumin 2.6 g/dl (3.5-5.0); Alkaline Phosphatase 137 U/L (38-126); Blood Urea Nitrogen 11 mg/dl (9-20); Calcium 7.7 mg/dl (8.4-10.2); Carbon Dioxide 22 mmol/L (22-30); Chloride 105 mmol/L (98-107); Estimated Creatinine Clearance 77 ml/min; Glucose 50 mg/dl (70-99); Potassium 4.1 mmol/L (3.5-5.1); Sodium 132 mmol/L (135-145); Total Protein 5.0 g/dl (6.3-8.2); eGFR > 60.00
[2024-12-07 08:52] LABS: Glucose - Point of Care 79 mg/dl (70-99)
[2024-12-07 08:54] LABS: Lipase 1141 U/L (23-300)
--- NOTE | 2024-12-07 09:16 | W.PN.GI.CBS2 ---
Today's Communication / Plan
-
Bili and lipase both improved
Advance to low fat diet
Assessment / Plan
-
Pt is a 89yo presents GERD, hypercholesterolemia, hypothyroidism, GERD, HTN, BPH, prior appe with onset of abdominal pain. On admission pt completed US abdomen with cholelithiasis and GB distention, wall thickening and edema. He was noted with WBC
13,100 that normalized, hbg 12.6, initial normal LFT's and lipase then rise on 12/04 to sergio 3.8, AST 352, ALT 260, alk phos 97. Pt went to OR for lap norbert with intraoperative cholangiogram with shelf/cut off at distal common bile duct and
delayed/slight emptying into the duodenum. Asked to see for EUS/ERCP with abnormal cholangiogram. In review with patient he denies and prior GI symptoms but had attack of pain prior to admission. He states he dose continued to have pain today
11/23 with some distention. He denies issue with odynophagia, dysphagia, GERD, nausea, vomiting, diarrhea, constipation, or rectal bleeding. No anticoagulation except lovenox that is on hold. No NSAID use. Distant hx EGD in past recalls as normal.
Impression:
Choledocholithiasis s/p ERCP stone extraction 12/05.
Post ERCP pancreatitis
-abnormal cholangiogram with IOC with shelf/cut off distal CBD
-s/p lap norbert 12/04
-increased LFT's
other med problems:
GERD, hypercholesterolemia, hypothyroidism, GERD, HTN, BPH, prior appe
Subjective
Subjective
Date of Service: December 07, 2024
Feels better today. Abd pain improved but not completely gone
Objective
Data Reviewed
Laboratory Data:
Laboratory Results
12/07/24 07:13
12/07/24 07:13
Laboratory Results
PT 15.0 Sec (11.4-14.6) H 12/05/24 09:23
INR 1.15 12/05/24 09:23
Total Bilirubin 5.5 mg/dl (0.2-1.3) H 12/07/24 07:13
AST 76 U/L (17-59) H 12/07/24 07:13
ALT 150 U/L (0-50) H 12/07/24 07:13
Alkaline Phosphatase 137 U/L (38-126) H 12/07/24 07:13
Lipase 1141 U/L (23-300) H* 12/07/24 07:13
Vital Signs and I&O:
Vital Signs
Temp Pulse Resp BP Pulse Ox
98.5 F 86 18 109/66 97
12/07/24 07:35 12/07/24 07:35 12/07/24 07:35 12/07/24 07:35 12/07/24 07:35
I&O
12/06/24 12/07/24 12/08/24
06:59 06:59 06:59
Intake Total 1610 / 1610 2640 / 2640
Output Total 550 / 550 1875 / 1875
Balance 1060 / 1060 765 / 765
Physical Exam
Physical Exam
GI: Soft, Non Distended and Tender (mild epigastric tender)
[2024-12-07 10:55] LABS: Glucose - Point of Care 84 mg/dl (70-99)
--- NOTE | 2024-12-07 13:01 | W.PN.GS2 ---
Addendum entered and electronically signed by Kirill Mulligan MD 12/07/24 13:09:
I saw and examined the patient.
The OIL REFINERY OPERATOR's note was reviewed and I agree with the note.
Comment: Improving. Denies n/v. Pain much improved. Minimally ttp. LFTs improved. New leukocytosis noted, likely 2/2 pancreatitis. Afebrile. OK to adv diet. Stop abx. Trend CBC/LFTs.
Original Note:
Today's Communication / Plan
-
ADAT
Assessment / Plan
-
Assessment/plan: 89-year-old male admitted with Acute biliary colic/acute calculus cholecystitis
POD #3 Lap norbert with IOC with suspected choledocholithiasis
PPD #2 ERCP with sphincterotomy and removal of stones
LFT's trending down
Lipase >4K previously, now down to 1141
Suspect post ERCP pancreatitis/edema from sphincterotomy, resolving
Leukocytosis, likely reactive to pancreatitis
H/H stable
Plan:
Diet advanced by GI to Low fat, will follow for tolerance
Analgesics/antiemetics scheduled and prn
C/W IVF, decrease rate now that he is tolerating PO intake
Follow off ABX
Labs in AM
VTE ppx with lovenox SQ
Anticipate d/c tomorrow if continues to improve
Subjective Data
-
Date of Service: December 07, 2024
PT seen and examined at bedside with Dr. Mulligan. Notes marked improvement in pain. Denies n/v. Tolerated clears this am.
Objective Data
-
Intake and Output
12/06/24 12/07/24 12/08/24
06:59 06:59 06:59
Intake Total 1610 / 1610 2640 / 2640
Output Total 550 / 550 1875 / 1875 375 / 375
Balance 1060 / 1060 765 / 765 -375 / -375
Intake:
Oral fluids 360 / 360 740 / 740
IV fluids (Total) 1250 / 1250 1800 / 1800
LR 50 / 50
IV piggybacks 100 / 100
Output:
Urine, Voided 550 / 550 1875 / 1875 375 / 375
Vital Signs
Temp Pulse Resp BP Pulse Ox
98.5 F 86 18 109/66 97
12/07/24 07:35 12/07/24 07:35 12/07/24 07:35 12/07/24 07:35 12/07/24 07:35
Lab Results
12/07/24 07:13
12/07/24 07:13
Calcium 7.7 mg/dl (8.4-10.2) L 12/07/24 07:13
Total Bilirubin 5.5 mg/dl (0.2-1.3) H 12/07/24 07:13
Direct Bilirubin 0.3 mg/dl (0.0-0.4) 12/04/24 05:55
AST 76 U/L (17-59) H 12/07/24 07:13
ALT 150 U/L (0-50) H 12/07/24 07:13
Alkaline Phosphatase 137 U/L (38-126) H 12/07/24 07:13
Total Protein 5.0 g/dl (6.3-8.2) L 12/07/24 07:13
Albumin 2.6 g/dl (3.5-5.0) L 12/07/24 07:13
Physical Exam
-
NAD
ABD soft, mildly tender to epigastrium, minimal incisional tenderness, mild distention
Incisions well approximated, healing well
[2024-12-07 15:29] VITALS: BP 119/79
[2024-12-07] MEDS: LOVENOX 40 MG SC (17:03)
[2024-12-07 23:23] VITALS: BP 102/59
[2024-12-08 03:02] LABS: Glucose - Point of Care 79 mg/dl (70-99)
[2024-12-08] MEDS: SYNTHROID 100 MCG PO (05:46)
[2024-12-08] MEDS: TORADOL 15 MG IV (05:46)
[2024-12-08 06:08] LABS: Hematocrit 32.9 % (39.0-52.0); Hemoglobin 11.3 g/dL (13.0-18.0); Mean Corp Hgb Conc. 34.3 g/dL (33.0-37.0); Mean Corpuscular Volume 90.1 fL (80.0-94.0); Platelet Count 207 10^3/uL (130-400); Red Cell Dist. Width 14.5 % (11.5-14.5)
[2024-12-08 06:34] LABS: ALT (SGPT) 103 U/L (0-50); AST (SGOT) 34 U/L (17-59); Albumin 2.6 g/dl (3.5-5.0); Alkaline Phosphatase 129 U/L (38-126); Blood Urea Nitrogen 13 mg/dl (9-20); Calcium 7.8 mg/dl (8.4-10.2); Carbon Dioxide 25 mmol/L (22-30); Chloride 106 mmol/L (98-107); Estimated Creatinine Clearance 67 ml/min; Glucose 62 mg/dl (70-99); Lipase 99 U/L (23-300); Potassium 4.0 mmol/L (3.5-5.1); Sodium 135 mmol/L (135-145); Total Protein 4.8 g/dl (6.3-8.2); eGFR > 60.00
[2024-12-08 06:48] LABS: Glucose - Point of Care 71 mg/dl (70-99)
[2024-12-08 07:01] VITALS: BP 104/64
[2024-12-08] MEDS: NORMOSOL-R/PLASMALYTE-A IV (08:24)
[2024-12-08] MEDS: PROSCAR 5 MG PO (08:26)
[2024-12-08] MEDS: PROTONIX IV 40 MG IV (08:26)
--- NOTE | 2024-12-08 09:48 | W.PN.GS2 ---
Today's Communication / Plan
-
dispo planning
Assessment / Plan
-
Assessment/plan: 89-year-old male admitted with Acute biliary colic/acute calculus cholecystitis
POD #4 Lap norbert with IOC with suspected choledocholithiasis
PPD #3 ERCP with sphincterotomy and removal of stones
LFT's continue trending down
Lipase normalized
Suspect post ERCP pancreatitis/edema from sphincterotomy, resolving
Leukocytosis, likely reactive to pancreatitis, trending down
H/H stable
Plan:
Continue current diet
Analgesics prn
D/C IVF
Follow off ABX
VTE ppx with lovenox SQ
D/C to home
Subjective Data
-
Date of Service: December 08, 2024
Pt seen and examined at bedside with Dr. Egan. Denies pain. Denies n/v. Feeling much better overall. Tolerating diet with good appetite. Passing flatus.
Objective Data
-
Intake and Output
12/07/24 12/08/24 12/09/24
06:59 06:59 06:59
Intake Total 2640 / 2640 2200 / 2200
Output Total 1874
Balance 765 / 765 225 / 225
Intake:
Oral fluids 740 / 740 400 / 400
IV fluids (Total) 1800 / 1800 1800 / 1800
IV piggybacks 100 / 100
Output:
Urine, Voided 1874
Vital Signs
Temp Pulse Resp BP Pulse Ox
97.9 F 78 18 104/64 94
12/08/24 07:01 12/08/24 07:01 12/08/24 07:01 12/08/24 07:01 12/08/24 07:01
Lab Results
12/08/24 05:12
12/08/24 05:12
Calcium 7.8 mg/dl (8.4-10.2) L 12/08/24 05:12
Total Bilirubin 2.6 mg/dl (0.2-1.3) H D 12/08/24 05:12
Direct Bilirubin 1.7 mg/dl (0.0-0.4) H 12/08/24 05:12
AST 34 U/L (17-59) 12/08/24 05:12
ALT 103 U/L (0-50) H 12/08/24 05:12
Alkaline Phosphatase 129 U/L (38-126) H 12/08/24 05:12
Total Protein 4.8 g/dl (6.3-8.2) L 12/08/24 05:12
Albumin 2.6 g/dl (3.5-5.0) L 12/08/24 05:12
Physical Exam
-
NAD
ABD soft, NT, ND
Incisions well approximated, healing well
--- NOTE | 2024-12-08 09:57 | W.DS.TRANS ---
Addendum entered and electronically signed by MARLO Cueva 12/08/24 16:52:
dictated #[id number]
Original Note:
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
-
Discharge Instructions:
Discharge Diagnosis/Procedures Acute cholecystitis, choledocholithiasis.
Laparoscopic cholecystectomy, ERCP and stone
extraction. Post ERCP pancreatitis.
Diet As tolerated,Low Fat
Additional Diets Smaller meals initially after surgery as
abdominal bloating and distention are common for
the first few days
Activity No strenuous activity
Additional Activity No lifting over 20 pounds for 3 to 4 weeks
postop
Driving Restrictions No driving for 24 hours
Bathing Restrictions OK to Shower
Wound Care Glue at surgical sites typically peels off in 2
to 3 weeks
Instructions:
Stand-Alone Forms:
Changes to Home Medications: No
Discharge Medications:
DC Medications w/original date entered in [facility]
acetaminophen 325 mg tablet (Tylenol) 650 mg PO Q6HPRN PRN mild pain 12/03/24
calcium carbonate (Tums) 200 mg PO BIDPRN PRN gerd 12/03/24
cholecalciferol (vitamin D3) 25 mcg (1,000 unit) tablet (Vitamin D3) 25 mcg PO DAILY 12/03/24
ferrous sulfate 325 mg (65 mg iron) tablet 325 mg PO DAILY 12/03/24
finasteride 5 mg tablet 5 mg PO DAILY 12/03/24
levothyroxine 100 mcg tablet (Synthroid) 100 mcg PO DAILY 12/03/24
pantoprazole 40 mg tablet,delayed release (Protonix) 40 mg PO DAILYPRN PRN gerd 12/03/24
therapeutic multivitamin 1 tab PO DAILY 12/03/24
vitamin E 268 mg (400 unit) capsule 268 mg PO DAILY 12/03/24
oxycodone 5 mg tablet 5 mg PO Q4HPRN PRN breakthrough/severe pain #5 tabs 12/08/24
Home Medication Changes
Pending Results: No
--- NOTE | 2024-12-08 10:12 | W.PN.GI.CBS2 ---
Addendum entered and electronically signed by Jayant Stroud MD 12/08/24 11:26:
I saw and examined the patient.
The FEDERAL JUDICIAL LAW CLERK or PA's note was reviewed and I agree with the note.
Comment: Pain much improved
ABD soft NTND
REC:
LFTs and lipase trending down/normalizing
Abd non tender
D/C plans per Surgery
Will sign off
Original Note:
Today's Communication / Plan
-
tolerating diet this am with improving pain
WBC 16.7-- 16
LFT's trending down
off antibiotics
dispo planning per surgical team
Assessment / Plan
-
Pt is a 89yo presents GERD, hypercholesterolemia, hypothyroidism, GERD, HTN, BPH, prior appe with onset of abdominal pain. On admission pt completed US abdomen with cholelithiasis and GB distention, wall thickening and edema. He was noted with WBC
13,100 that normalized, hbg 12.6, initial normal LFT's and lipase then rise on 12/04 to sergio 3.8, AST 352, ALT 260, alk phos 97. Pt went to OR for lap norbert with intraoperative cholangiogram with shelf/cut off at distal common bile duct and
delayed/slight emptying into the duodenum. Asked to see for EUS/ERCP with abnormal cholangiogram. In review with patient he denies and prior GI symptoms but had attack of pain prior to admission. He states he dose continued to have pain today
11/23 with some distention. He denies issue with odynophagia, dysphagia, GERD, nausea, vomiting, diarrhea, constipation, or rectal bleeding. No anticoagulation except lovenox that is on hold. No NSAID use. Distant hx EGD in past recalls as normal.
Impression:
Choledocholithiasis s/p ERCP stone extraction 12/05.
Post ERCP pancreatitis
-abnormal cholangiogram with IOC with shelf/cut off distal CBD
-s/p lap norbert 12/04
-increased LFT's
other med problems:
GERD, hypercholesterolemia, hypothyroidism, GERD, HTN, BPH, prior appe
PLAN:
tolerating diet this am with improving pain
WBC 16.7-- 16
LFT's trending down
off antibiotics
dispo planning per surgical team
Subjective
Subjective
Date of Service: December 08, 2024
Pt now eating and feeling better, no stools but + flatus
Objective
Data Reviewed
Laboratory Data:
Laboratory Results
12/08/24 05:12
12/08/24 05:12
Laboratory Results
PT 15.0 Sec (11.4-14.6) H 12/05/24 09:23
INR 1.15 12/05/24 09:23
Total Bilirubin 2.6 mg/dl (0.2-1.3) H D 12/08/24 05:12
AST 34 U/L (17-59) 12/08/24 05:12
ALT 103 U/L (0-50) H 12/08/24 05:12
Alkaline Phosphatase 129 U/L (38-126) H 12/08/24 05:12
Lipase 99 U/L (23-300) 12/08/24 05:12
Vital Signs and I&O:
Vital Signs
Temp Pulse Resp BP Pulse Ox
97.9 F 78 18 104/64 94
12/08/24 07:01 12/08/24 07:01 12/08/24 07:01 12/08/24 07:01 12/08/24 07:01
I&O
12/07/24 12/08/24 12/09/24
06:59 06:59 06:59
Intake Total 2640 / 2640 2200 / 2200
Output Total 1874 / 1875 1974 / 1974
Balance 765 / 765 225 / 225
Physical Exam
Physical Exam
HEENT: Other (mild jaundice)
Cardiology: Normal Sinus Rhythm
Pulmonary: Clear
GI: Soft, Non Distended and Tender (minimal )
Extremities: No Edema
Neuro: Non Focal
--- NOTE | 2024-12-08 10:41 | CM ---
Chart reviewed. Patient clear for d/c today
Met w/ patient bedside. IMM verbally reviewed, copy provided, copy on chart
Son in law will transport home
No CM needs at this time
Plan: Home, no needs
[2024-12-08 10:58] VITALS: BP 123/71
== END 2024-12-08 13:19 | disposition home or self-care (01) | DRG 417 ==
LOC: 4 WEST ACU 07:45
PROVIDERS: Nurse Practitioner Adult Health; Physician Assistant; Registered Nurse; Surgery; ADMITTING PHYSICIAN Surgery; CONSULT PHYSICIAN Nuclear Medicine Nuclear Cardiology; CONSULT PHYSICIAN Specialist; EMERGENCY PHYSICIAN Student in an Organized Health Care Education/Training Program; FAMILY PHYSICIAN Internal Medicine
PROC: BF101ZZ Fluoroscopy of Bile Ducts using Low Osmolar Contrast (ICD-10-PCS; 2024-12-05)
PROC: 0FT44ZZ Resection of Gallbladder, Percutaneous Endoscopic Approach (ICD-10-PCS; 2024-12-05)
DX: K80.62 Calculus of gallbladder and bile duct with acute cholecystitis without obstruction (principal); K85.90 Acute pancreatitis without necrosis or infection, unspecified; K21.9 Gastro-esophageal reflux disease without esophagitis; E78.00 Pure hypercholesterolemia, unspecified; E03.9 Hypothyroidism, unspecified; N40.0 Benign prostatic hyperplasia without lower urinary tract symptoms; I10 Essential (primary) hypertension; Z87.891 Personal history of nicotine dependence; Z79.890 Hormone replacement therapy; G25.81 Restless legs syndrome; K40.90 Unilateral inguinal hernia, without obstruction or gangrene, not specified as recurrent; N28.1 Cyst of kidney, acquired; Z79.899 Other long term (current) drug therapy; Z80.0 Family history of malignant neoplasm of digestive organs; Z82.0 Family history of epilepsy and other diseases of the nervous system; Z90.49 Acquired absence of other specified parts of digestive tract
CPT/HCPCS: 74300; 74330; 76000; 76700; 80053; 82248; 82962; 83690; 84484; 85025; 85027; 85610; 88304; 93005; 93306; 96361; 96365; 99285; C1769

== ENCOUNTER → 2024-12-10 13:57 | Outpatient (REF) | payer OTHER, SELFPAY | LOC: RAD 13:57 | PROVIDERS: ATTENDING PHYSICIAN Nurse Practitioner Adult Health; FAMILY PHYSICIAN Internal Medicine | DX: K85.90 Acute pancreatitis without necrosis or infection, unspecified (principal); R60.9 Edema, unspecified; Z90.49 Acquired absence of other specified parts of digestive tract; D72.829 Elevated white blood cell count, unspecified; K59.00 Constipation, unspecified | CPT/HCPCS: 74018 ==